=== PATIENT | male | born 1955 | race Caucasian/White ===

== ENCOUNTER 2022-08-29 11:29 | Outpatient (CLI) | payer BC, MEDICARE, SELFPAY ==
[2022-08-29 18:00] LABS: Chloride* 104 mmol/L (96-114); Potassium* 4.6 mmol/L (3.6-5.1); Sodium* 139 mmol/L (135-149)
[2022-08-29 18:03] LABS: Blood Urea Nitrogen* 23 mg/dL (7-30); Carbon Dioxide* 32 mmol/L (20-32); Creatinine* 0.8 mg/dL (0.5-1.5); Estimated Glomerular Filt Rate 98 ml/min; Glucose* 106 mg/dL (60-115)
[2022-08-29 18:04] LABS: Calcium* 9.7 mg/dL (8.4-10.6)
== END 2022-08-29 11:30 | disposition home or self-care (01) ==
LOC: LONREF 11:34
PROVIDERS: PCP Family Medicine; Visit Provider Family Medicine
DX: Z01.818 Encounter for other preprocedural examination (principal)
CPT/HCPCS: 80048

== ENCOUNTER 2023-02-18 11:15 | Outpatient (CLI) | payer BC, MEDICARE, SELFPAY | END 2023-02-18 11:16 | disposition home or self-care (01) | PROVIDERS: PCP Family Medicine; Visit Provider Family Medicine | DX: Z01.818 Encounter for other preprocedural examination (principal); I10 Essential (primary) hypertension; E78.5 Hyperlipidemia, unspecified; Z12.5 Encounter for screening for malignant neoplasm of prostate; E13.9 Other specified diabetes mellitus without complications | CPT/HCPCS: 80048; 80061; 84153 ==

== ENCOUNTER 2024-02-05 11:06 | Outpatient (CLI) | payer BC, MEDICARE, SELFPAY | END 2024-02-05 11:07 | disposition home or self-care (01) | PROVIDERS: PCP Family Medicine; Visit Provider Family Medicine | DX: I10 Essential (primary) hypertension (principal); E78.5 Hyperlipidemia, unspecified; E13.9 Other specified diabetes mellitus without complications; D64.9 Anemia, unspecified | CPT/HCPCS: 80048; 80061 ==

== ENCOUNTER 2024-08-03 02:31 | Emergency (ER) | payer BC, MEDICARE, SELFPAY ==
[2024-08-03 02:36] VITALS: BP 166/83; PULSE 117; RESP 16; TEMP 37; O2SAT 96; BMI 32.7
--- NOTE | 2024-08-03 02:58 | CRLHL7_ITS ---
For Patients: As a result of the Cures Act, medical imaging exams and procedure reports are released immediately into your electronic medical record. You may view this report before your referring provider. If you have questions, please contact your health care provider. Indication: Worsening chronic pain Technique: Frontal view of the pelvis and two views of the right hip Comparison: None Findings/Impression: Right hip replacement and partially visualized lumbosacral fusion hardware with no acute radiographic abnormality appreciated. Dictated by Portillo Fierro MD @ 08/03/2024 3:26:42 AM (Electronically Signed)
--- OUTSIDE RECORDS SUMMARY | 2024-08-03 03:05 | XMS_ITS | Clinical Summary ---
Author Organization [facility] Address [place], [place] [address] Care Team Providers Care Residential Program Coordinator Name Role Phone Timbo Cobos MD Primary Care Provider [phone] Allergies Active Allergy Reactions Criticality Noted Date Comments Hydromorphone *Unknown 05/25/2021 Pollen Extracts *Unknown 02/28/2022 Prednisone Other - Describe In Comment Field Aggressive Tramadol *Unknown - Pt Doesn't Remember 05/24 Medications Medication Sig Dispensed Refills Start Date End Date Status amitriptyline (ELAVIL) 100 mg tablet Take 100 mg by mouth at bedtime. 08/26/2020 Active albuterol HFA (PRO-AIR; VENTOLIN; PROVENTIL) 90 mcg/actuation inhaler Inhale 2 Puffs by mouth every 4 hours if needed for Shortness Of Breath. Active MULTIVITAMIN ORAL Take 1 Tablet by mouth once daily. Active SUMAtriptan (IMITREX) 50 mg tablet Take 50 mg by mouth 2 times daily if needed for Migraine. Give at minimum 2hrs apart. Max Dose: 200mg per 24hrs. Active WalkerIndications:P ost-op pain,S/P lumbar fusion Walker with front wheels for home use. 1 Each 06/08/2021 Active morphine IMMEDIATE RELEASE 15 mg tablet Take 15 mg by mouth 3 times daily if needed for Pain. Active morphine CONTROLLED RELEASE (MS CONTIN) 30 mg CR tablet Take 30 mg by mouth three times daily. Active ascorbic acid, vitamin C, (VITAMIN C) 250 mg tablet Take 250 mg by mouth once daily. Active citalopram (CELEXA) 20 mg tablet Take 20 mg by mouth once daily. Active ferrous sulfate, 65 mg elemental, tablet Take 325 mg by mouth once daily with a meal. Active metoprolol succinate (TOPROL XL) 25 mg Sustained-Release tablet Take 25 mg by mouth once daily. Active metFORMIN (GLUCOPHAGE XR) 750 mg Extended-Release tablet Take 750 mg by mouth two times daily with meals. Active pramipexole (MIRAPEX) 1 mg tablet Take 1 mg by mouth at bedtime. Active pramipexole (MIRAPEX) 1 mg tablet Take 1 mg by mouth at bedtime if needed (restless leg syndrome). May take in addition to the scheduled dose Active acetaminophen (TYLENOL EXTRA STRGTH) 500 mg tabletIndications:S /P total right hip arthroplasty Take 2 Tablets (1,000 mg) by mouth three times daily. Max acetaminophen dose: 4000mg in 24 hrs. 0 09/05/2022 Active Additional Information Patient taking differently:1,000 mg OralQ 6H PRN, Pain, Max acetaminophen dose: 4000mg in 24 hrs., Reported on 03/06/2023 aspirin (ECOTRIN) 81 mg enteric coated tabletIndications:S /P total right hip arthroplasty Take 1 Tablet (81 mg) by mouth two times daily with meals. 60 Tablet 09/05/2022 Active cyclobenzaprine (FLEXERIL) 10 mg tablet Take 10 mg by mouth three times daily. 11/20/2022 Active gabapentin (NEURONTIN) 300 mg capsule Take 600 mg by mouth three times daily. Active Active Problems Problem Noted Date Diagnosed Date Primary osteoarthritis of right hip 09/04/2022 S/P total right hip arthroplasty 07/23/2022 Acute blood loss anemia 06/03/2021 Presence of intrathecal pump 05/29/2021 Overview (05/29/2021): Managed by [facility], fentanyl, morphine and bupivacaine Asthma Depression Diabetes mellitus, type 2 GERD (gastroesophageal reflux disease) Hyperlipidemia Lumbar spinal stenosis Overview (05/29/2021): Status post ERP-STAGE1 ANTERIOR FUSION L3-S1 SUPINE on 05/29/[address] Medina Restless leg syndrome Migraine Type 2 diabetes mellitus wit hout complication, without long-term current use of insulin Immunizations Name Administration Dates Next Due Influenza RIV4 (Age 18+ Years) PRESERV FREE 06/17 Influenza, IIV3 (Age >=3 years) 07/01/2009,08/19 Influenza, IIV4 07/17/2020 Pneumococcal Poly,23-Valent (Pneumovax) 08/19/20 08 Tdap 12/03/2018,08/19/2008 Family History Medical History Relation Name Comments Diabetes Father Alzheimer's disease Mother Relation Name Status Comments Father Mother Social History Tobacco Use Types Packs/Day Years Used Date Smoking Tobacco: Every Day Cigarettes 0.5 47.9 Started: 1975 Smokeless Tobacco: Never Tobacco Cessation:Ready to Q uit: Not Asked; Counseling Given: Not Answered Comments:Has smoked since age 21, half a pack per day Alcohol Use Standard Drinks/Week Comments Never 0 (1 standard drink = 0.6 oz pur e alcohol) Social Connections Answer Date Recorded Frequency of Communication with Friends and Fami ly Not on file 12/25/2022 Sex and Gender Information Value Date Recorded Sex Assigned at Not on file Gender Identity Not on file Sexual Orientation Not on file Obstetrics History Last Filed Vital Signs Vital Sign Reading Time Taken Comments Blood Pressure 124/61 03/07/2023 8:25 AM CDT Pulse 82 03/07/2023 8:25 AM CDT Temperature 36.7 ??C (98.1 ??F) 03/07/2023 8:25 AM CD T Respiratory Rate 18 03/07/2023 8:25 AM CDT Oxygen Saturation 96% 03/07/2023 8:25 AM CDT Inhaled Oxygen Concentration - - Weight 105.7 kg (233 lb 1.6 oz) 03/06/2023 6:28 AM CDT Height 177.8 cm (5' 10) 03/04/2023 8:34 AM CDT Body Mass Index 33.45 03/04/2023 8:34 AM CDT Plan of Treatment Health Maintenance Due Date Last Done Comments Depression screening for age 12+ 1968 BMI (ht and wt on same day) for age 18+ 1974 Hepatitis C screening for ag e 18-79 1974 Colonoscopy through age 75 2001 Lipids for age 45-75 2001 Zoster (shingles) series for age 50+ (1 of 2) 2006 Pneumococcal series for age 65+ (2 of 2 - PCV) 2021 08/19/2008 COVID-19 vaccine series ( - season) 2024 Influenza for age 65+ 05/17/2024 07/17/2020 , 07/12/2020, 07/01/2009, Additional history exists Tetanus booster 12/03/2028 12/03/2018, 08/19/2008 Tdap Completed 12/03/2018, 08/19/2008 Medical Devices Implanted Type Area Drapery And Upholstery Measurer Device Identifier Shelf Expiration Date Model / Serial / Lot Bone Matrix Md Infuse Bmp - [id number] Implanted:Qty: 1 on 05/29/2021 by Fransisco Medina MD at [facility] N/A: Lumbar Vertebrae Med[employer] Spine/Ortho 05/17/2023 [id number] / / [id number] Description:Implanted L3-S1 anterior Bone Matrix 10cc [place] [employer] Dbm - [id number] Implanted:Qty: 1 on 05/29/2021 by Fransisco Medina MD at [facility] N/A: Lumbar Vertebrae Med[employer] Spine/Ortho 04/11/2023 [id number] / [id number] / Description:Implanted L3-S1 anterior Bone Matrix 10cc [employer] Db - [id number] Implanted:Qty: 1 on 05/29/2021 by Fransisco Medina MD at [facility] N/A: Lumbar Vertebrae [employer]onic Spine/Ortho 04/17/2023 [id number] / [id number] / Description:Implanted L3-S1 anterior Bone 1-4mm 30cc Medtronic Chips Canclls Freeze Dried - [id number] Implanted:Qty: 1 on 05/29/2021 by Fransisco Medina MD at [facility] N/A: Lumbar Vertebrae [employer]onic Spine/Ortho 09/11/2025 [id number] / [id number] / - Description:Implanted L3-S1 anterior M3 Stand-Alone Alif Cage 25mmx 35mm- 8 Degrees, 13mm Implanted:Qty: 1 on 05/29/2021 by Fransisco Medina MD at [facility] N/A: Lumbar Vertebrae Youxiduo 09/30/2025 [id number] / / [id number] Description:Anterior L3-L4 S pine M3 Stand-Alone Alif Cage, 25mmx 35mm, 8 Degrees, 14 Mm Implanted:Qty: 1 on 05/29/2021 by Fransisco Medina MD at [facility] N/A: Lumbar Vertebrae [facility] 04/06/2026 [id number] / / [id number] Description:Anterior L5-S1 M3 Stand-Alone Alif Cage, 25mmx 35mm, 8 Degrees, 15 Mm Implanted:Qty: 1 on 05/29/2021 by Fransisco Medina MD at [facility] N/A: Lumbar Vertebrae 04/18/2025 [id number] / / [id number] Description:Anterior L4-L5 Corelink 5.5mm X 20mm Screw Implanted:Qty: 9 on 05/29/2021 by Fransisco Medina MD at [facility] N/A: Lumbar Vertebrae Youxiduo [id number] / / [id number] Description:Anterior L3-S1 Corelink Locking Plate Implanted:Qty: 3 on 05/29/2021 by Fransisco Medina MD at [facility] N/A: Lumbar Vertebrae Youxiduo [id number] / / [id number] Description:Anterior L3-S1 Bone Matrix 10cc Stimulan Kitrapid Cure - [id number] Implanted:Qty: 1 on 05/31/2021 by Fransisco Medina MD at [facility] N/A: Thoracic Vertebrae [employer] 11/14/2023 [id number] / / [id number] Bone Matrix Lg Infuse Bmp - [id number] Implanted:Qty: 1 on 05/31/2021 by Fransisco Medina MD at [facility] Lumbar Vertebrae Med[employer] Spine/Ortho 03/15/2023 [id number] / / [id number] Description:Posterior T10-pe lvis Bone Matrix 17.2r942mj [facility] [id number] Implanted:Qty: 1 on 05/31/2021 by Fransisco Medina MD at [facility] Lumbar Vertebrae [employer]onic Spine/Ortho 02/15/2023 [id number] / [id number] / - Description:Posterior T10-pe lvis Bone 1-4mm 90cc Medtronic Chips Canclls Freeze Dried - [id number] Implanted:Qty: 1 on 05/31/2021 by Fransisco Medina MD at [facility] Lumbar Vertebrae [employer] Spine/Ortho 10/05/2025 [id number] / [id number] / - Bone 1-4mm 30cc Medtronic Chips Canclls Freeze Dried - [id number] Implanted:Qty: 1 on 05/31/2021 by Fransisco Medina MD at [facility] Lumbar Vertebrae [employer] Spine/Ortho 09/11/2025 [id number] / [id number] / Description:Posterior T10-pe lvis Screw Lmbr Post 7.5x45mm Xia3va - [id number] Implanted:Qty: 6 on 05/31/2021 by Fransisco Medina MD at [facility] Lumbar Vertebrae [facility] [id number] / / Description:Posterior T10-pe lvis Screw Lmbr Post 7.5x50mm Loyda 3va - [id number] Implanted:Qty: 2 on 05/31/2021 by Fransisco Medina MD at [facility] Lumbar Vertebrae [place] [employer] [id number] / / Description:Posterior T10-pe lvis Screw Lmbr Post 6.5x50mm Xia3va - [id number] Implanted:Qty: 5 on 05/31/2021 by Fransisco Medina MD at [facility] Lumbar Vertebrae [place] [employer] [id number] / / Description:Posterior T10-pe lvis Screw Lmbr Post 5x45mm Xia3 Va - [id number] Implanted:Qty: 2 on 05/31/2021 by Fransisco Medina MD at [facility] Lumbar Vertebrae [employer] [facility] [id number] / / Description:Posterior T10-pe lvis Screw Lmbr Post 6.5x45mm Loyda 3va - [id number] Implanted:Qty: 1 on 05/31/2021 by Fransisco Medina MD at [facility] Lumbar Vertebrae [employer] Spine [id number] / / Description:Posterior T10-pe lvis Screw Lmbr Post 7.5x40mm Loyda 3va - [id number] Implanted:Qty: 2 on 05/31/2021 by Fransisco Medina MD at [facility] Lumbar Vertebrae [place] Spine [id number] / / Description:Posterior T10-pe lvis Screw Lmbr Post 8.5x70mm Ilios Va - [id number] Implanted:Qty: 1 on 05/31/2021 by Fransisco Medina MD at [facility] Lumbar Vertebrae [employer]o Spine [id number] / / Description:Posterior T10-pe lvis Set Screw Lmbr Xia3 - [id number] Implanted:Qty: 19 on 05/31/2021 by Fransisco Medina MD at [facility] Lumbar Vertebrae [employer] Spine [id number] / / Description:Posterior T10-pe lvis Pradip Lmbr [id number] Loyda Iii Hexagonal Co Cr - [id number] Implanted:Qty: 2 on 05/31/2021 by Fransisco Medina MD at [facility] Lumbar Vertebrae [employer] Spine [id number] / / Description:Posterior T10-pe lvis Vitoss Mimodal Implanted:Qty: 1 on 05/31/2021 by Fransisco Medina MD at [facility] Lumbar Vertebrae [employer] [facility] 12/11/2021 / / [id number] Description:Posterior T10-pe lvis Vitoss Bimodal Implanted:Qty: 1 on 05/31/2021 by Fransisco Medina MD at [facility] Lumbar Vertebrae [place] Sp[facility] 01/11/2022 / / [id number] Description:Posterior T10-pe lvis Vitoss Bimodal Implanted:Qty: 1 on 05/31/2021 by Fransisco Medina MD at [facility] Lumbar Vertebrae [employer] Sp[facility] 05/13/2022 / / [id number] Description:Posterior T10-pe lvis Cnnctr Lmbr 53-73mm Loyda Iii Va - [id number] Implanted:Qty: 1 on 05/31/2021 by Fransisco Medina MD at [facility] Lumbar Vertebrae [employer] Spine [id number] / / Description:Posterior T10-pe lvis Clusterhole Acetabular Shell Implanted:Qty: 1 on 09/04/2022 by Min Kelley MD at [facility] Right: Hip [facility] 07/17/2027 [id number] / / [id number] 6.5mm Low Profile Hex Screw Implanted:Qty: 1 on 09/04/2022 by Min Kelley MD at [facility] Right: Hip [facility] 08/07/2027 [id number] / / [id number] 6.5mm Low Profile Hex Screw Implanted:Qty: 1 on 09/04/2022 by Min Kelley MD at [facility] Right: Hip [place] [facility] 07/26/2027 [id number] / / [id number] Insert For Mdm Implanted:Qty: 1 on 09/04/2022 by Min Kelley MD at [facility] Right: Hip [facility] 11/21/2025 [id number] / / [id number] Mdm Liner Implanted:Qty: 1 on 09/04/2022 by Min Kelley MD at [facility] Right: Hip [facility] 02/23/2026 [id number] / / [id number] 127deg Neck Angle Hip Stem Implanted:Qty: 1 on 09/04/2022 by Min Kelley MD at [facility] Right: Hip [facility] 10/16/2026 [id number] / / [id number] Ceramic V40 Femoral Head Implanted:Qty: 1 on 09/04/2022 by Min Kelley MD at [facility] Right: Hip [facility] 04/29/2026 [id number] / / [id number] Explanted Type Area Drapery And Upholstery Measurer Device Identifier Shelf Expiration Date Model / Serial / Lot Screw Sm Joint 4.5x20mm Axsos Dale Titnm - [id number] Explanted:Qty : 3 on 05/31/2021 by Fransisco Medina MD at [facility] Lumbar Vertebrae [place] [facility] [id number] / / Pain Pump Explanted:Qty : 1 on 03/06/2023 by Fransisco Medina MD at [facility] Right: Spine [place] Loyda 3 Screws, 3 Caps, 1 Pradip Explanted:Qty : 1 on 03/06/2023 by Fransisco Medina MD at [facility] N/A: Spine Description:L5-Pelvis Advance Directives * DNR (Latest Code Status on File) Date Activated Date Inactivated Comments 03/06/2023 7:27 AM 03/07/2023 2:00 PM Question Answer Comments Code Status Discussion: Reviewed PreferencesOthe r Per Dr. Medina and Dr. French * Full Code Date Activated Date Inactivated Comments 03/06/2023 6:03 AM 03/06/2023 7:27 AM Question Answer Comments Code Status Discussion: Unable to Assess Preferences, Provider to review later * Full Code Date Activated Date Inactivated Comments 09/04/2022 1:09 PM 09/08/2022 5:53 PM Question Answer Comments Code Status Discussion: Unable to Assess Preferences, Provider to review later * Full Code Date Activated Date Inactivated Comments 09/04/2022 7:53 AM 09/04/2022 1:09 PM Question Answer Comments Code Status Discussion: Not Discussed * Full Code Date Activated Date Inactivated Comments 05/31/2021 10:27 AM 06/08/2021 7:19 PM Question Answer Comments Code Status Discussion: Not Discussed Care Teams Residential Program Coordinator Relationship Specialty Start Date End Date Timbo Cobos MD PCP - General Family Practice 10/18/20
--- NOTE | 2024-08-03 03:45 | ED_ITS ---
HPI - General Adult General Date Seen: 08/03/24 Chief complaint: Hip Injury/Pain Stated complaint: right hip pain Time Seen by Provider: 08/03/24 02:35 Source: patient, RN notes reviewed and old records reviewed Mode of arrival: ambulatory Limitations: no limitations History of Present Illness HPI narrative: Patient is a 68-year-old male with a history of chronic pain including chronic neck pain, chronic low back pain and chronic right hip pain status post multiple surgeries. He does have a pain contract currently with a pain clinic which is relatively new to him, previously was followed by [facility] pain clinic. He notes an increase in his chronic right hip pain over the past few days. He uses the cane all the time but has had to use a walker more frequently and is worried about having to use this once it gets snowy. He denies injuries or illness, no fevers. Pain is worsened by weight-bearing and movement, better at rest. He continues to take his extended release and immediate release morphine, he isn't certain if he is currently taking cyclobenzaprine, also has gabapentin. Says that steroids have never been helpful. Is worried that hardware may be broken. Related Data Home Medications ?Medication ?Instructions ?Recorded ?Confirmed multivitamin 1 tab PO QDAY 04/30/22 02/05/24 sumatriptan succinate 50 mg tablet 50 mg PO .As Needed PRN 04/30/22 02/05/24 gabapentin 300 mg capsule 900 mg PO QDAY 08/29/22 02/05/24 acetaminophen 650 mg 500 mg PO Q8H 02/05/24 02/05/24 tablet,extended release aspirin 81 mg tablet,delayed 81 mg PO .every other day 02/05/24 02/05/24 release (Adult Low Dose Aspirin) cyclobenzaprine 10 mg tablet 10 mg PO TID 02/05/24 02/05/24 ferrous sulfate 325 mg (65 mg 325 mg PO .PRN 02/05/24 02/05/24 iron) tablet (FeroSul) morphine PO BID PRN 02/05/24 morphine 30 mg immediate release 15 mg PO Q6H PRN 02/05/24 02/05/24 tablet Previous Rx's ?Medication ?Instructions ?Recorded amoxicillin 500 mg capsule 2,000 mg (4 x 500 mg) PO ONCE #8 08/29/22 caps albuterol sulfate 90 mcg/actuation 2 puff inhalation Q6-8H PRN 02/05/24 aerosol inhaler shortness of breath or wheezing #6.7 grams amitriptyline 100 mg tablet See Rx Instructions .Route 02/05/24 .COMPLEX #90 tabs citalopram 20 mg tablet 20 mg PO DAILY #90 tabs 02/05/24 metformin 750 mg tablet,extended 1,500 mg (2 x 750 mg) PO QDAY #180 02/05/24 release 24 hr tabs metoprolol succinate 25 mg 25 mg PO DAILY #90 tabs 02/05/24 tablet,extended release 24 hr pramipexole 1 mg tablet 1 mg PO QPM #90 tabs 02/05/24 rosuvastatin 20 mg tablet 20 mg PO .Bedtime #90 tabs 02/05/24 glimepiride 4 mg tablet 4 mg PO QAM #90 tabs 02/06/24 ascorbic acid (vitamin C) 250 mg See Rx Instructions .Route 02/07/24 tablet .COMPLEX #90 tabs ferrous sulfate 325 mg (65 mg See Rx Instructions .Route 02/07/24 iron) tablet (FeroSul) .COMPLEX #90 tabs lidocaine 5 % topical patch 1 patch topical Q24H #15 ea 08/03/24 Allergies Allergy/AdvReac Type Severity Reaction Status Date / Time hydromorphone Allergy Unknown Verified 02/05/24 10:21 prednisone Allergy Unknown violent Verified 02/05/24 10:21 tramadol Allergy Unknown Verified 02/05/24 10:21 [facility] Medical History H/O onychomycosis ?Z86.19 - Personal history of other infectious and parasitic diseases (ICD- 10) Surgical History History of total right hip arthroplasty ?Z96.641 - Presence of right artificial hip joint (ICD-10) Status post thoracic spinal fusion (~05/2021) ?Z98.1 - Arthrodesis status (ICD-10) Status post laminectomy with spinal fusion (~05/2021) ?Z98.1 - Arthrodesis status (ICD-10) Status post cervical spinal arthrodesis (~2011) ?Z98.1 - Arthrodesis status (ICD-10) Status post bilateral inguinal hernia repair ?Z98.890 - Other specified postprocedural states (ICD-10) ?Z87.19 - Personal history of other diseases of the digestive system (ICD-10) History of umbilical hernia repair ?Z98.890 - Other specified postprocedural states (ICD-10) ?Z87.19 - Personal history of other diseases of the digestive system (ICD-10) History of right knee surgery ?Z98.890 - Other specified postprocedural states (ICD-10) Family History Father Diabetes Mother Alzheimers disease Social History Smoking Status: Current some day smoker Do you use any of these nicotine containing products: None Second hand tobacco smoke exposure: No Non-prescribed substance use: denies use Exam Narrative: Exam Narrative: Vital signs reviewed. Mildly tachycardic on arrival, resolved spontaneously. In general, alert, nontoxic. Abdomen: Soft, nontender, protuberant. Back: Diffusely tender to palpation. Extremities: He has chronic venous stasis changes in the right lower extremity which he says have been present since his surgery. Pulses intact. No significant edema, no calf tenderness. Gentle range of motion of the right hip did not seem to cause any significant pain. He has diffuse tenderness over the posterior and lateral hip on the right. There is no rash, erythema or swelling. Const: Vital Signs, click to edit/add: Vital Signs - 24 hr 08/03/24 02:36 Temperature 98.6 F Pulse Rate [Left P ulse Oximeter] 117 H Respiratory Rate 16 Blood Pressure [Ri ght Upper Arm] 166/83 H Pulse Oximetry 96 Oxygen Delivery Me thod Room Air Documenting provider has reviewed patient's vital signs: yes Course Course ED Course: X-rays of the right hip by my review show intact hardware, no dislocation or fracture. I reviewed this with him. I do not find anything on exam or history to suggest a new problems such as septic joint, pain is more in the posterior hip/SI area less over the trochanteric bursa. He has an ongoing pain contract, discussed with him I am not really able to provide additional narcotic pain medication which he says he does not want any way. He says he was hoping maybe there was something broken hardware that could be fixed. He is willing to try lidocaine patch to see if that provides any additional benefit for him as he says he has not tried these for a while. He has an appointment with his pain clinic in 10 days and I have encouraged him to keep that, would also touch base with them by phone if possible tomorrow. Return any time for significant worsening. Vital Signs Vital signs: Initial Vital Signs Temperature 98.6 F 08/03/24 02:36 Temperature Source Temporal Artery Scan 08/03/24 02:36 Pulse Rate 117 H 08/03/24 02:36 Respiratory Rate 16 08/03/24 02:36 Blood Pressure 166/83 H 08/03/24 02:36 Blood Pressure Mean 110 H 08/03/24 02:36 Blood Pressure Position Sitting 08/03/24 02:36 Pulse Oximetry 96 08/03/24 02:36 Oxygen Delivery Method Room Air 08/03/24 02:36 Vital Signs Temperature 98.6 F 08/03/24 02:36 Pulse Rate 117 H 08/03/24 02:36 Respiratory Rate 16 08/03/24 02:36 Blood Pressure 166/83 H 08/03/24 02:36 Pulse Oximetry 96 08/03/24 02:36 Oxygen Delivery Method Room Air 08/03/24 02:36 Temperature 98.6 F 08/03/24 02:36 Pulse Rate 117 H 08/03/24 02:36 Respiratory Rate 16 08/03/24 02:36 Blood Pressure 166/83 H 08/03/24 02:36 Pulse Oximetry 96 08/03/24 02:36 Oxygen Delivery Method Room Air 08/03/24 02:36 Medical Decision Making Imaging Data Right hip x-ray: Attestation: I have reviewed the pertinent imaging results. Radiologist's impression: Patient: SHAHAB ROBLERO Facility: [facility] Site . Site : [id number] Study: XRay-Hip Right W/PELVIS-08/03/2024 3:24:14 AM Ordering Physician: Abraham Mora Final Report: Indication: Worsening chronic pain Technique: Frontal view of the pelvis and two views of the right hip Comparison: None Findings/Impression: Right hip replacement and partially visualized lumbosacral fusion hardware with no acute radiographic abnormality appreciated. Dictated by Portillo Fierro MD @ 08/03/2024 3:26:42 AM Discharge Plan Discharge Clinical Impression: Chronic right hip pain Patient Disposition: Home, Self-Care Condition: Stable Instructions: Pain Management (ED) Additional Instructions: Trial of lidocaine patches in addition to your usual medications. Please call your pain clinic tomorrow to touch base, follow-up as planned in a week and a half. Return to the ER for worsening or new symptoms. Prescriptions: New lidocaine 5 % adhesive patch,medicated 1 patch topical Q24H Qty: 15 0RF Rx Instructions: leave on most painful area for up to 12 hrs No Action gabapentin 300 mg capsule 900 mg PO QDAY amoxicillin 500 mg capsule 2,000 mg PO ONCE Qty: 8 2RF multivitamin Tablet 1 tab PO QDAY sumatriptan succinate 50 mg tablet 50 mg PO .As Needed PRN Rx Instructions: ONE TAB AT ONSET OF HEADACHE, MAY REPEAT Q2H PRN, MAX 200 MG/24 HRS acetaminophen 650 mg tablet extended release 500 mg PO Q8H morphine 30 mg tablet 15 mg PO Q6H PRN aspirin [Adult Low Dose Aspirin] 81 mg tablet,delayed release (DR/EC) 81 mg PO .every other day morphine 15 mg PO BID PRN cyclobenzaprine 10 mg tablet 10 mg PO TID ferrous sulfate [FeroSul] 325 mg (65 mg iron) tablet 325 mg PO .PRN albuterol sulfate 90 mcg/actuation HFA aerosol inhaler 2 puff inhalation Q6-8H PRN (Reason: shortness of breath or wheezing) Qty: 6.7 4RF amitriptyline 100 mg tablet See Rx Instructions .ROUTE .COMPLEX Qty: 90 3RF Dose Instruction: TAKE 1 TABLET AT BEDTIME Rx Instructions: TAKE 1 TABLET AT BEDTIME citalopram 20 mg tablet 20 mg PO DAILY Qty: 90 3RF metformin 750 mg tablet extended release 24 hr 1,500 mg PO QDAY Qty: 180 3RF metoprolol succinate 25 mg tablet extended release 24 hr 25 mg PO DAILY Qty: 90 3RF pramipexole 1 mg tablet 1 mg PO QPM Qty: 90 3RF rosuvastatin 20 mg tablet 20 mg PO .Bedtime Qty: 90 3RF glimepiride 4 mg tablet 4 mg PO QAM Qty: 90 3RF Rx Instructions: administer with breakfast ferrous sulfate [FeroSul] 325 mg (65 mg iron) tablet See Rx Instructions .ROUTE .COMPLEX Qty: 90 3RF Dose Instruction: TAKE 1 TABLET DAILY TAKE WITH VITAMIN C 250 MG ONCE DAILY Rx Instructions: TAKE 1 TABLET DAILY TAKE WITH VITAMIN C 250 MG ONCE DAILY ascorbic acid (vitamin C) 250 mg tablet See Rx Instructions .ROUTE .COMPLEX Qty: 90 3RF Dose Instruction: TAKE 1 TABLET DAILY WITH FERROUS SULFATE 325 MG ONCE DAILY Rx Instructions: TAKE 1 TABLET DAILY WITH FERROUS SULFATE 325 MG ONCE DAILY Follow Up/Referrals: Timbo Cobos MD [Primary Care Provider] - Stand Alone Forms: [employer] Info Instructions
== END 2024-08-03 04:00 | disposition home or self-care (01) ==
PROVIDERS: Emergency Provider Emergency Medicine; PCP Family Medicine
DX: M25.551 Pain in right hip (principal)
CPT/HCPCS: 73502; 99283; 99284

== ENCOUNTER 2024-09-24 02:25 | Outpatient (CLI) | payer BC, MEDICARE, SELFPAY | END 2024-09-24 02:26 | disposition home or self-care (01) | LOC: AMB 10-08 06:22 | PROVIDERS: PCP Family Medicine; Visit Provider Family Medicine | DX: M54.9 Dorsalgia, unspecified (principal) | CPT/HCPCS: A0425; A0427 ==

== ENCOUNTER 2024-09-24 03:12 | Emergency (ER) | payer BC, MEDICARE, SELFPAY ==
[2024-09-24] VITALS (23 sets, daily range): BP systolic 96–137; BP diastolic 56–100; PULSE 92–112; RESP 18–230; TEMP 36.7; O2SAT 81–96; BMI 27.1
--- NOTE | 2024-09-24 03:28 | CRLHL7_ITS ---
For Patients: As a result of the Century Cures Act, medical imaging exams and procedure reports are released immediately into your electronic medical record. You may view this report before your referring provider. If you have questions, please contact your health care provider. INDICATION: Fall TECHNIQUE: CT thoracic spine without contrast. COMPARISON: None. FINDINGS: Vertebrae: Mild levocurvature of the thoracic spine. Partially visualized cervical spine hardware described separately. Partially visualized thoracolumbar posterior fusion beginning at T10. There are no fractures or suspicious bony lesions. Discs and facet joints: Moderate degenerative disease of the thoracic spine, most severe at T8-T9 with severe disc height loss and endplate changes. Mild central narrowing at throughout the thoracic spine. [id number] neural foraminal narrowing throughout the thoracic spine. Severe neural foramina narrowing at T4-T5 on the left, T7-T8 on the right at and T8-T9 on the right. Extraspinal findings: Prevertebral soft tissues, visualized airway, and visualized lungs are unremarkable. Evaluation of the lungs is limited by respiratory motion artifact. IMPRESSION: No acute fracture or traumatic subluxation. Visualized spinal hardware is intact. Moderate degenerative disease of the thoracic spine. Please note that all CT scans at this facility use dose modulation, iterative reconstruction, and/or weight-based dosing when appropriate to reduce radiation dose to as low as reasonably achievable. Dictated by Sonya Shah MD @ 09/24/2024 4:54:11 AM (Electronically Signed)
--- NOTE | 2024-09-24 03:28 | CRLHL7_ITS ---
For Patients: As a result of the Cures Act, medical imaging exams and procedure reports are released immediately into your electronic medical record. You may view this report before your referring provider. If you have questions, please contact your health care provider. INDICATION: Fall TECHNIQUE: CT cervical spine without contrast. COMPARISON: None. FINDINGS: Vertebrae: No acute fracture traumatic subluxation. C3 to C7 ACDF and PSIF with interbody disc spacers. Hardware is intact without evidence of loosening. Osseous fusion across the spinous processes and facets at C3-C7. Discs and facet joints: Degenerative disease throughout the spine with facet arthropathy. Moderate to severe bilateral neural foraminal narrowing at C4-C5. Mild to moderate bilateral neural foraminal narrowing throughout the remainder of the cervical spine. Extraspinal findings: Biapical pleural-parenchymal scarring. Prevertebral soft tissues are unremarkable. IMPRESSION: 1. No sign of acute injury. 2. C3-C7 ACDF and PSIF. 3. Moderate degenerative disease of the cervical spine, most severe at C4-C5. Please note that all CT scans at this facility use dose modulation, iterative reconstruction, and/or weight-based dosing when appropriate to reduce radiation dose to as low as reasonably achievable. Dictated by Sonya Shah MD @ 09/24/2024 4:43:35 AM (Electronically Signed)
--- NOTE | 2024-09-24 03:28 | CRLHL7_ITS ---
For Patients: As a result of the Century Cures Act, medical imaging exams and procedure reports are released immediately into your electronic medical record. You may view this report before your referring provider. If you have questions, please contact your health care provider. INDICATION: Fall TECHNIQUE: CT lumbar spine without contrast. COMPARISON: MR lumbar spine 10/04/2020 FINDINGS: Vertebrae: S shaped curvature of the visualized thoracolumbar spine. Transitional vertebral anatomy with lumbarization of S1. L3-L5 laminectomies. Partially visualized posterior fusion with sabrina terminating at L4 on the right and S1 on the left. Fusion of posterior rods at the level of L4. There is fracture of the left sabrina at the level L5. L3-S1 anterior fusion with interbody disc spacers. No evidence of hardware loosening. Osseous fusion of the lumbar spine from L2 to S1, though there is incomplete fusion at L4-L5. Screw tracts in the iliac wings. Discs and facet joints: Moderate degenerative disease of the lumbar spine. Extraspinal findings: Fluid and subcutaneous gas in the lumbar spine extending from L3-S1, particularly along the left spinal sabrina. Four ingest the bilateral psoas muscles, greater than left. IMPRESSION: No acute fracture. Spinal hardware with fracture of the left sabrina at the level of L5. Fluid and gas throughout the L3-L5 laminectomy beds and extending along the left spinal sabrina, and in the bilateral psoas muscles, greater on the left. Correlate with recent surgery. If no recent surgery has been performed, this is concerning for infection. Please note that all CT scans at this facility use dose modulation, iterative reconstruction, and/or weight-based dosing when appropriate to reduce radiation dose to as low as reasonably achievable. Dictated by Sonya Shah MD @ 09/24/2024 5:08:57 AM (Electronically Signed)
--- NOTE | 2024-09-24 03:28 | CRLHL7_ITS ---
For Patients: As a result of the Century Cures Act, medical imaging exams and procedure reports are released immediately into your electronic medical record. You may view this report before your referring provider. If you have questions, please contact your health care provider. INDICATION: Fall TECHNIQUE: CT head without contrast. COMPARISON: CT head 06/11/2021 FINDINGS: Evaluation limited by motion artifact. symmetric. The ventricles, sulci and cisterns are normal. BRAIN: The brain parenchyma is normal. No acute transcortical infarct or hemorrhage is seen. VASCULATURE: No acute abnormality on this noncontrast exam. EXTRA-AXIAL: Extra-axial spaces are normal. EXTRA-CRANIAL: Skull and facial bones are normal. Mild scattered sinus mucosal thickening. Mastoids are clear. Orbits are normal. IMPRESSION: No acute intracranial abnormality. Please note that all CT scans at this facility use dose modulation, iterative reconstruction, and/or weight-based dosing when appropriate to reduce radiation dose to as low as reasonably achievable. Dictated by Sonya Shah MD @ 09/24/2024 4:36:15 AM (Electronically Signed)
[2024-09-24 03:36] LABS: Basophils Percent Auto 0.1 % (0.0-3.0); Eosinophils Percent Auto 0.4 % (0.0-7.0); Hematocrit 30.1 % (37.0-53.0); Hemoglobin* 9.5 gm/dL (13.5-17.5); Immature Granulocytes Pct Auto 1.5 %; Lymphocytes Percent Auto 6.7 % (20-44); Mean Corpuscular HGB Conc 32 gm/dL (32-36); Mean Corpuscular Hemoglobin 28 pg (26-34); Mean Corpuscular Volume 88 fL (80-100); Monocytes Percent Auto 5.9 % (0.0-11.0); Neutrophils Percent Auto 85.4 % (42.0-72.0); Platelet Count* 421 K/uL (140-440); RDW Coefficient of Variation % 14.9 % (11.5-15.5); Red Blood Count 3.41 m/uL (4.30-5.90)
[2024-09-24 03:37] LABS: Chloride* 89 mmol/L (96-114); Potassium* 3.3 mmol/L (3.6-5.1); Sodium* 131 mmol/L (135-149)
[2024-09-24 03:38] LABS: Slide Review Reflex No
[2024-09-24 03:40] LABS: Anion Gap 5 mEq/L (7-15); Blood Urea Nitrogen* 28 mg/dL (7-30); Carbon Dioxide* 37 mmol/L (20-32); Creatinine* 1.3 mg/dL (0.5-1.5); Est. Creatinine Clearance* 60.52; Estimated Glomerular Filt Rate 60 ml/min
[2024-09-24 03:41] LABS: Calcium* 9.3 mg/dL (8.4-10.6); Glucose* 260 mg/dL (60-115)
[2024-09-24] MEDS: 0.9 % SODIUM CHLORIDE 1000 ml 1,000 ML 500 ML IV (03:57)
[2024-09-24 04:15] LABS: PCR FLU A Negative PCR FLU A (Negative); PCR FLU B Negative PCR FLU B (Negative); PCR RSV Negative PCR RSV (Negative); SARS PCR* Negative SARS-CoV-2 (Negative)
--- NOTE | 2024-09-24 04:26 | CRLHL7_ITS ---
For Patients: As a result of the Century Cures Act, medical imaging exams and procedure reports are released immediately into your electronic medical record. You may view this report before your referring provider. If you have questions, please contact your health care provider. INDICATION: Hypoxia. COMPARISON: None available. TECHNIQUE: One view (2 images) FINDINGS: Medical Devices: None. Lung Volumes: Adequate inspiration. No significant atelectasis. Lungs: Clear lungs. Pleura and Pleural spaces: No significant pleural effusion. No pneumothorax. Mediastinum: AP technique exaggerates the transverse dimension of the cardiac silhouette. Borderline cardiomegaly. Bony Thorax and Soft Tissues: No significant incidental findings. Cervical and thoracolumbar spinal fusion hardware is incidentally noted, incompletely included in the field of view. IMPRESSION: No findings to explain the clinical history. Incidental findings described in the body of the report. Dictated by Victor Manuel Coles MD @ 09/24/2024 6:05:35 AM (Electronically Signed)
--- OUTSIDE RECORDS SUMMARY | 2024-09-24 04:56 | XMS_ITS | Clinical Summary ---
Author Organization [facility] Address [place], [place] [address] Care Team Providers Care Transcripter Name Role Phone None Primary Care Provider Unavailabl e Allergies Active Allergy Reactions Criticality Noted Date Comments Hydromorphone *Unknown 05/25/2021 Pollen Extracts *Unknown 02/28/2022 Prednisone Other - Describe In Comment Field Aggressive Tramadol *Unknown - Pt Doesn't Remember 05/24 Medications amitriptyline (ELAVIL) 100 mg tablet Take 100 mg by mouth at bedtime. 08/26/20 20 Active albuterol HFA (PRO-AIR; VENTOLIN; PROVENTIL) 90 mcg/actuation inhaler Inhale 2 Puffs by mouth every 4 hours if needed for Shortness Of Breath. Active MULTIVITAMIN ORAL Take 1 Tablet by mouth once daily. Active SUMAtriptan (IMITREX) 50 mg tablet Take 50 mg by mouth 2 times daily if needed for Migraine. Give at minimum 2hrs apart. Max Dose: 200mg per 24hrs. Active WalkerIndication s:Post-op pain,S/P lumbar fusion Walker with front wheels for home use. 1 Each 06/08/20 21 Active morphine IMMEDIATE RELEASE 15 mg tablet [...] Active metoprolol succinate (TOPROL XL) 25 mg Sustained-Releas e tablet Take 25 mg by mouth once [...] Active acetaminophen (TYLENOL EXTRA STRGTH) 500 mg tabletIndication s:S/P total right hip arthroplasty Take 2 Tablets (1,000 mg) by mouth three times daily. Max acetaminophen dose: 4000mg in 24 hrs. 0 09/05/20 22 Active Additional Information Patient taking differently:1,000 mg OralQ 6H PRN, Pain, Max acetaminophen dose: 4000mg in 24 hrs., Reported on 03/06/2023 aspirin (ECOTRIN) 81 mg enteric coated tabletIndication s:S/P total right hip arthroplasty Take 1 Tablet (81 mg) by mouth two times daily with meals. 60 Tablet 09/05/20 22 Active cyclobenzaprine (FLEXERIL) 10 mg tablet Take 10 mg by mouth three times daily. 11/21/19 23 Active gabapentin (NEURONTIN) 300 mg capsule Take 600 mg by mouth three times daily. Active glimepiride (AMARYL) 4 mg tablet 07/12/20 24 Active pregabalin (LYRICA) 225 mg capsule TAKE 1 CAPSULE BY MOUTH TWICE DAILY FOR NERVE PAIN. DISCONTINUE GABAPENTIN 05/20/20 24 Active pregabalin (LYRICA) 300 mg capsule TAKE 1 CAPSULE BY MOUTH TWICE DAILY FOR NERVE PAIN. DISCONTINUE GABAPENTIN 06/17/20 24 Active rosuvastatin (CRESTOR) 20 mg tablet 08/09/20 24 Active Active Problems Problem Noted Date Diagnosed Date Primary osteoarthritis of right hip 09/04/2022 S/P total right hip arthroplasty 07/23/2022 Acute blood loss anemia 06/03/2021 Presence of intrathecal pump 05/29/2021 Overview (05/29/2021): Managed by [facility], fentanyl, morphine and bupivacaine Asthma Depression Diabetes mellitus, type 2 GERD (gastroesophageal reflux disease) Hyperlipidemia Lumbar spinal stenosis Overview (05/29/2021): Status post ERP-STAGE1 ANTERIOR FUSION L3-S1 SUPINE on 05/29/[address] Medina Restless leg syndrome Migraine Type 2 diabetes mellitus wit hout complication, without long-term current use of insulin Encounters Date Type Department Care Team Description 09/10/2024 11:45 AM TAG AND LABEL CUTTER Office Visit [facility] [address] [place] [phone] Francisco Pabon PA Recheck (Lumbar) 09/10/2024 11:30 AM TAG AND LABEL CUTTER Ancillary Procedure [facility] [address] [place] [phone] 09/10/2024 Travel from Last 3 Months Immunizations Name Administration Dates Next Due Influenza RIV4 (Age 18+ Years) PRESERV FREE 06/17 Influenza, IIV3 (Age >=3 years) 07/01/2009,08/19 Influenza, IIV4 07/17/2020 Pneumococcal Poly,23-Valent (Pneumovax) 08/19/20 08 Tdap 12/03/2018,08/19/2008 Family History Medical History Relation Name Comments Diabetes Father Alzheimer's disease Mother Relation Name Status Comments Father Mother Social History Tobacco Use Types Packs/Day Years Used Date Smoking Tobacco: Every Day Cigarettes 0.5 48 Started: 1976 Smokeless Tobacco: Never Tobacco Cessation:Ready [...] Recorded Sex Assigned at Not on file Legal Sex Male 12:23 PM TAG AND LABEL CUTTER Gender Identity Not on file Sexual Orientation Not on file Obstetrics History Last Filed Vital Signs Vital Sign Reading Time Taken Comments Blood Pressure 124/61 03/07/2023 8:25 AM CDT Pulse 82 03/07/2023 8:25 AM CDT Temperature 36.7 C (98.1 F) 03/07/2023 8:25 AM CDT Respiratory Rate 18 03/07/2023 8:25 AM CDT Oxygen Saturation 96% 03/07/2023 8:25 AM CDT Inhaled Oxygen Concentration - - Weight 95.3 kg (210 lb) 09/10/2024 11:38 AM TAG AND LABEL CUTTER Height 182.9 cm (6') 09/10/2024 11:38 AM TAG AND LABEL CUTTER Body Mass Index 28.48 09/10/2024 11:38 AM TAG AND LABEL CUTTER Plan of Treatment Upcoming Encounters Date Type Department Care Team (Late st Contact Info) Description 10/12/2024 10:40 AM TAG AND LABEL CUTTER Office Visit [facility] [address] [place] [phone] Fransisco Medina MD [address] [place] [address] Health Maintenance Due Date Last Done Comments Depression screening for age 12+ 1968 Hepatitis C screening for ag e 18-79 1974 Colonoscopy through age 75 2001 Lipids for age 45-75 2001 Zoster (shingles) series for age 50+ (1 of 2) 2006 Pneumococcal series for age 50+ (2 of 2 - PCV) 08/19/2009 08/19/2008 AAA screening age 65-74 2021 COVID-19 vaccine series ( season) 2024 09/19/2021, 01/31/2021, 01/10/2021 Influenza for age 65+ 05/17/2024 07/17/2020 , 07/12/2020, 07/01/2009, Additional history exists BMI (ht and wt on same day) for age 18+ 09/10/2025 09/10/2024 Tetanus booster 12/03/2028 12/03/2018, 08/19/2008 RSV vaccine for adults or (1 - 1-dose 75+ series) 12/02/2031 Tdap Completed 12/03/2018, 08/19/2008 Medical Devices Implanted Type Area Glue Machine Operator Device Identifier Shelf Expiration Date Model / Serial / Lot Bone Matrix Infuse Bmp - [id number] Implanted:Qty: 1 on 05/29/2021 by Fransisco Medina MD at [facility] N/A: Lumbar Vertebrae Med[employer] 05/17/2023 [id number] / / [id number] Description:Implanted L3-S1 anterior Bone Matrix 10cc [place] [employer] Dbm - [id number] Implanted:Qty: 1 on 05/29/2021 by Fransisco Medina MD at [facility] N/A: Lumbar Vertebrae [employer] Spine/Ortho 04/11/2023 [id number] / [id number] / Description:Implanted L3-S1 anterior Bone Matrix 10cc [place] [employer] Dbm - [id number] Implanted:Qty: 1 on 05/29/2021 by Fransisco Medina MD at [facility] N/A: Lumbar Vertebrae [employer] Spine/Ortho 04/17/2023 [id number] / [id number] / Description:Implanted L3-S1 anterior Bone 1-4mm 30cc Medtronic Chips Canclls Freeze Dried - [id number] Implanted:Qty: 1 on 05/29/2021 by Fransisco Medina MD at [facility] N/A: Lumbar Vertebrae [employer] Spine/Ortho 09/11/2025 [id number] / [id number] / - Description:Implanted L3-S1 anterior M3 Stand-Alone Alif Cage 25mmx 35mm- 8 Degrees, 13mm Implanted:Qty: 1 on 05/29/2021 by Fransisco Medina MD at [facility] N/A: Lumbar Vertebrae Radionomy 09/30/2025 [id number] / / [id number] Description:Anterior L3-L4 S pine M3 Stand-Alone Alif Cage, 25mmx 35mm, 8 Degrees, 14 Mm Implanted:Qty: 1 on 05/29/2021 by Fransisco Medina MD at [facility] N/A: Lumbar [employer]brae Radionomy 04/06/2026 [id number] / / [id number] Description:Anterior L5-S1 M3 Stand-Alone Alif Cage, 25mmx 35mm, 8 Degrees, 15 Mm Implanted:Qty: 1 on 05/29/2021 by Fransisco Medina MD at [facility] N/A: Lumbar Vertebrae 04/18/2025 [id number] / / [id number] Description:Anterior L4-L5 Corelink 5.5mm X 20mm Screw Implanted:Qty: 9 on 05/29/2021 by Fransisco Medina MD at [facility] N/A: Lumbar Vertebrae Radionomy [id number] / / [id number] Description:Anterior L3-S1 Corelink Locking Plate Implanted:Qty: 3 on 05/29/2021 by Fransisco Medina MD at [facility] N/A: Lumbar Vertebrae Radionomy [id number] / / [id number] Description:Anterior L3-S1 Bone Matrix 10cc Stimulan Kitrapid Cure - [id number] Implanted:Qty: 1 on 05/31/2021 by Fransisco Medina MD at [facility] N/A: Thoracic Vertebrae [employer] 11/14/2023 620-010 / / [id number] Bone Matrix Lg Infuse Bmp - [id number] Implanted:Qty: 1 on 05/31/2021 by Fransisco Medina MD at [facility] Lumbar Vertebrae [employer] Spine/Or[facility]o 03/15/2023 [id number] / / [id number] Description:Posterior T10-pe lvis Bone Matrix 17.4p259sr Magnifuse Pc Dbm - [id number] Implanted:Qty: 1 on 05/31/2021 by Fransisco Medina MD at [facility] Lumbar Vertebrae [employer] Spine/[employer] 02/15/2023 [id number] / [id number] / - Description:Posterior T10-pe lvis Bone 1-4mm 90cc Medtronic Chips Canclls Freeze Dried - [id number] Implanted:Qty: 1 on 05/31/2021 by Fransisco Medina MD at [facility] Lumbar Vertebrae Med[employer] Spine/Ortho 10/05/2025 [id number] / [id number] / - Bone 1-4mm 30cc Medtronic Chips Canclls Freeze Dried - [id number] Implanted:Qty: 1 on 05/31/2021 by Fransisco Medina MD at [facility] Lumbar Vertebrae [employer] Spine[employer] 09/11/2025 [id number] / [id number] / Description:Posterior T10-pe lvis Screw Lmbr Post 7.5x45mm Xia3va - [id number] Implanted:Qty: 6 on 05/31/2021 by Fransisco Medina MD at [facility] Lumbar Vertebrae [facility] [id number] / / Description:Posterior T10-pe lvis Screw Lmbr Post 7.5x50mm Loyda 3va - [id number] Implanted:Qty: 2 on 05/31/2021 by Fransisco Medina MD at [facility] Lumbar Vertebrae [place] [facility] [id number] / / Description:Posterior T10-pe lvis Screw Lmbr Post 6.5x50mm Xia3va - [id number] Implanted:Qty: 5 on 05/31/2021 by Fransisco Medina MD at [facility] Lumbar Vertebrae [place] [facility] [id number] / / Description:Posterior T10-pe lvis Screw Lmbr Post 5x45mm Xia3 Va - [id number] Implanted:Qty: 2 on 05/31/2021 by Fransisco Medina MD at [facility] Lumbar Vertebrae [place] [facility] [id number] / / Description:Posterior T10-pe lvis Screw Lmbr Post 6.5x45mm Loyda 3va - [id number] Implanted:Qty: 1 on 05/31/2021 by Fransisco Medina MD at [facility] Lumbar Vertebrae [facility] [id number] / / Description:Posterior T10-pe lvis Screw Lmbr Post 7.5x40mm Loyda 3va - [id number] Implanted:Qty: 2 on 05/31/2021 by Fransisco Medina MD at [facility] Lumbar Vertebrae [facility] [id number] / / Description:Posterior T10-pe lvis Screw Lmbr Post 8.5x70mm Ilios Va - [id number] Implanted:Qty: 1 on 05/31/2021 by Fransisco Medina MD at [facility] Lumbar Vertebrae [facility] [id number] / / Description:Posterior T10-pe lvis Set Screw Lmbr Xia3 - [id number] Implanted:Qty: 19 on 05/31/2021 by Fransisco Medina MD at [facility] Lumbar Vertebrae [facility] [id number] / / Description:Posterior T10-pe lvis Pradip Lmbr [id number] Loyda Iii Hexagonal Co Cr - [id number] Implanted:Qty: 2 on 05/31/2021 by Fransisco Medina MD at [facility] Lumbar Vertebrae [facility] [id number] / / Description:Posterior T10-pe lvis Vitoss Mimodal Implanted:Qty: 1 on 05/31/2021 by Fransisco Medina MD at [facility] Lumbar Vertebrae [facility] 12/11/2021 [id number] / / [id number] Description:Posterior T10-pe lvis Vitoss Bimodal Implanted:Qty: 1 on 05/31/2021 by Fransisco Medina MD at [facility] Lumbar Vertebrae [facility] 01/11/2022 2567-4886 / / [id number] Description:Posterior T10-pe lvis Vitoss Bimodal Implanted:Qty: 1 on 05/31/2021 by Fransisco Medina MD at [facility] Lumbar Vertebrae [place] [facility] 05/13/2022 1107-4132 / / [id number] Description:Posterior T10-pe lvis Cnnctr Lmbr 53-73mm Loyda Iii Va - [id number] Implanted:Qty: 1 on 05/31/2021 by Fransisco Medina MD at [facility] Lumbar Vertebrae [facility] [id number] / / Description:Posterior T10-pe lvis Clusterhole Acetabular Shell Implanted:Qty: 1 on 09/04/2022 by Min Kelley MD at [facility] Right: Hip [facility] 07/17/2027 [id number] / / [id number] 6.5mm Low Profile Hex Screw Implanted:Qty: 1 on 09/04/2022 by Min Kelley MD at [facility] Right: Hip [place] [facility] 08/07/2027 3310-1404 / / [id number] 6.5mm Low Profile Hex Screw Implanted:Qty: 1 on 09/04/2022 by Min Kelley MD at [facility] Right: Hip [facility] 07/26/2027 [id number] / / [id number] Insert For Mdm Implanted:Qty: 1 on 09/04/2022 by Min Kelley MD at [facility] Right: Hip [facility] 11/21/2025 1236-2-852 / / [id number] Mdm Liner Implanted:Qty: 1 on 09/04/2022 by Min Kelley MD at [facility] Right: Hip [facility] 02/23/2026 [id number] / / [id number] 127deg Neck Angle Hip Stem Implanted:Qty: 1 on 09/04/2022 by Min Kelley MD at [facility] Right: Hip [facility] 10/16/2026 [id number] / / [id number] Ceramic V40 Femoral Head Implanted:Qty: 1 on 09/04/2022 by Min Kelley MD at [facility] Right: Hip [facility] 04/29/2026 6570-0-228 / / [id number] Explanted Type Area Glue Machine Operator Device Identifier Shelf Expiration Date Model / Serial / Lot Screw Sm Joint 4.5x20mm Axsos Dale Titnm - [id number] Explanted:Qty : 3 on 05/31/2021 by Fransisco Medina MD at [facility] Lumbar Vertebrae [facility] [id number] / / Pain Pump Explanted:Qty : 1 on 03/06/2023 by Fransisco Medina MD at [facility] Right: Spine [place] Loyda 3 Screws, 3 Caps, 1 Pradip Explanted:Qty : 1 on 03/06/2023 by Fransisco Medina MD at [facility] N/A: Spine Description:L5-Pelvis Procedures Procedure Name Priority Date/Time Associated Diagnosis Comments XR SPINE LUMBAR MINIMUM 4 VIEWS Routine 09/10/2024 11:29 AM TAG AND LABEL CUTTER Lumbar pain from Last 3 Months Results * XR SPINE LUMBAR MINIMUM 4 VIEWS (09/10/2024 11:29 AM TAG AND LABEL CUTTER) Anatomical Region Laterality Modality Spine, LUMBAR SPINE Computed Rad iography 09/10/2024 11:2 9 AM TAG AND LABEL CUTTER Impressions 09/10/2024 3:34 PM TAG AND LABEL CUTTER Thoracolumbar dextrocurvature. Minimal retrolisthesis of L1 on L2 and grade 1 anterolisthesis of L3 on L4. No appreciable dynamic instability between flexion and extension, although evaluation is limited due to overlapping bone and hardware. T9-L5 posterior fusion construct with L2-L3, L3-L4, and L4-L5 anterior interbody fusions. Bone cement in the posterior soft tissues. The left-sided pradip is fractured between the L4 and L5 screws. No other hardware breakage or loosening is appreciated. Vertebral body heights are maintained. Multilevel disc space height loss with associated endplate osteophyte formation and facet arthropathy. Narrative 09/10/2024 3:34 PM TAG AND LABEL CUTTER For Patients: As a result of the Cures Act, medical imaging exams and procedure reports are released immediately into your electronic medical record. You may view this report before your referring provider. If you have questions, please contact your health care provider. EXAM: XR SPINE LUMBAR MINIMUM 4 VIEWS LOCATION: [facility] DATE: 09/10/2024 INDICATION: Lumbar pain. COMPARISON: 10/27/2021, 03/06/2023. Procedure Note Janiya Bennett MD - 09/10/2024 For Patients: As a result of the Cures Act, medical imagingexams and procedure reports are released immediately into your electronicmedical record. You may view this report before your referring provider.If you have questions, please contact your health care provider. EXAM: XR SPINE LUMBAR MINIMUM 4 VIEWS LOCATION: [facility] DATE: 09/10/2024 INDICATION: Lumbar pain. COMPARISON: 10/27/2021, 03/06/2023. IMPRESSION: Thoracolumbar dextrocurvature. Minimal retrolisthesis of L1 on L2 andgrade 1 anterolisthesis of L3 on L4. No appreciable dynamic instabilitybetween flexion and extension, although evaluation is limited due tooverlapping bone and hardware. T9-L5 posterior fusion construct with L2-L3, L3-L4, and L4-L5 anteriorinterbody fusions. Bone cement in the posterior soft tissues. Theleft-sided pradip is fractured between the L4 and L5 screws. No otherhardware breakage or loosening is appreciated. Vertebral body heights aremaintained. Multilevel disc space height loss with associated endplateosteophyte formation and facet arthropathy. [facility] Final Result from Last 3 Months Insurance MEDICARE PART A HB ONLY BLUE CROSS OF NON-MS-ITS MEDICARE PB ONLY HC MEDICARE PPS MEDICARE PROVIDER BASED BLUE CROSS OF NON-MS-[facility] Advance Directives * DNR (Latest Code Status [...] Code Status Discussion: Not Discussed Care Teams Transcripter Relationship Specialty Start Date End Date None . PCP - General 09/03/24
[2024-09-24] MEDS: CEFTAZIDIME IVPB (06:00)
[2024-09-24] MEDS: SODIUM CHLORIDE MINI 0.9% IVPB (06:00)
--- NOTE | 2024-09-24 06:02 | ED.GENADULT ---
HPI - General Adult General Date Seen: 09/24/24 Chief complaint: Back Injury/Pain Stated complaint: fall Time Seen by Provider: 09/24/24 03:33 Source: patient, family and EMS Mode of arrival: EMS Limitations: altered mental status History of Present Illness HPI narrative: Patient is a 68-year-old male with chronic back pain with history of multiple spine surgeries most recently February 2023. His spine surgeon is Dr. Medina. He was seen by his PA on 09/10/2024. X-rays revealed a fractured sabrina in his left lumbar area. A plan was made for him to have an outpatient CT later today at [facility]. Patient is a brought in by ambulance with a history of falls. Initially he told me that he fell once. After speaking with his she tells me that he has fallen at least 3 times in the last two days. Yesterday when he fell he hit his head but supposedly did not lose consciousness. He denies any head injury from today's falls. His back pain has gotten much more severe and his legs are weak. He is chronically on amitriptyline, gabapentin, morphine 15 mg t.i.d.. He denies taking any extra pain medication. He denies fevers or chills. He tells me that he has been eating and drinking normally although he clinically appears dehydrated. His tells me that he has not eaten or drank for the past two days and has only been out of bed on a couple of occasions. He denies fevers or chills. He denies shortness of breath but was hypoxic to 81% on room air upon arrival. He denies coughs. He tells me that he has been taking his medications as prescribed but he has no idea what those medications are. Supposedly at baseline his cognition is normal and so tonight's confusion is new. He does recall that he has an appointment in [place] later today and I assume that is for his CT. Related Data Home Medications ?Medication ?Instructions ?Recorded ?Confirmed multivitamin 1 tab PO QDAY 04/30/22 09/24/24 gabapentin 300 mg capsule 900 mg PO QDAY 08/29/22 09/24/24 acetaminophen 650 mg 500 mg PO Q8H 02/05/24 09/24/24 tablet,extended release aspirin 81 mg tablet,delayed 81 mg PO .every other day 02/05/24 09/24/24 release (Adult Low Dose Aspirin) cyclobenzaprine 10 mg tablet 10 mg PO TID 02/05/24 09/24/24 ferrous sulfate 325 mg (65 mg 325 mg PO .PRN 02/05/24 09/24/24 iron) tablet (FeroSul) morphine 15 mg immediate release 15 mg PO BID-TID PRN severe pain 09/24/24 09/24/24 tablet morphine 15 mg tablet,extended 15 mg PO 3XD chronic pain 09/24/24 09/24/24 release Previous Rx's ?Medication ?Instructions ?Recorded albuterol sulfate 90 mcg/actuation 2 puff inhalation Q6-8H PRN 02/05/24 aerosol inhaler shortness of breath or wheezing #6.7 grams amitriptyline 100 mg tablet See Rx Instructions .Route 02/05/24 .COMPLEX #90 tabs citalopram 20 mg tablet 20 mg PO DAILY #90 tabs 02/05/24 metformin 750 mg tablet,extended 1,500 mg (2 x 750 mg) PO QDAY #180 02/05/24 release 24 hr tabs metoprolol succinate 25 mg 25 mg PO DAILY #90 tabs 02/05/24 tablet,extended release 24 hr pramipexole 1 mg tablet 1 mg PO QPM #90 tabs 02/05/24 rosuvastatin 20 mg tablet 20 mg PO .Bedtime #90 tabs 02/05/24 glimepiride 4 mg tablet 4 mg PO QAM #90 tabs 02/06/24 ascorbic acid (vitamin C) 250 mg See Rx Instructions .Route 02/07/24 tablet .COMPLEX #90 tabs lidocaine 5 % topical patch 1 patch topical Q24H #15 ea 08/03/24 Allergies Allergy/AdvReac Type Severity Reaction Status Date / Time hydromorphone Allergy Unknown Verified 09/24/24 03:29 prednisone Allergy Unknown violent Verified 09/24/24 03:29 tramadol Allergy Unknown Verified 09/24/24 03:29 Review of Systems Narrative: Her review of systems is positive for his chronic low back pain. He does not test his blood sugar regularly and is aware that they have been running high. He denies chest pains or shortness of breath. He denies any prolonged time on the ground after his falls. Review of systems in all other areas is noted to be negative. [facility] Medical History H/O onychomycosis ?Z86.19 - Personal history of other infectious and parasitic diseases (ICD-10) Surgical History History of total right hip arthroplasty ?Z96.641 - Presence of right artificial hip joint (ICD-10) Status post thoracic spinal fusion (~05/2021) ?Z98.1 - Arthrodesis status (ICD-10) Status post laminectomy with spinal fusion (~05/2021) ?Z98.1 - Arthrodesis status (ICD-10) Status post cervical spinal arthrodesis (~2011) ?Z98.1 - Arthrodesis status (ICD-10) Status post bilateral inguinal hernia repair ?Z98.890 - Other specified postprocedural states (ICD-10) ?Z87.19 - Personal history of other diseases of the digestive system (ICD-10) History of umbilical hernia repair ?Z98.890 - Other specified postprocedural states (ICD-10) ?Z87.19 - Personal history of other diseases of the digestive system (ICD-10) History of right knee surgery ?Z98.890 - Other specified postprocedural states (ICD-10) Family History Father Diabetes Mother Alzheimers disease Social History Smoking Status: Current some day smoker Do you use any of these nicotine containing products: None Second hand tobacco smoke exposure: No How often do you have a drink containing alcohol: never AUDIT-C Alcohol total score: 0 Non-prescribed substance use: denies use Exam Narrative: Exam Narrative: Vitals noted. His speech is difficult to understand because of extreme dryness in his mouth. HEENT: Conjunctiva clear. Tympanic membranes are pearly white bilaterally. Mouth is dry, tongue is fissured. Teeth are decayed or missing. Neck is supple without adenopathy. Decreased range of motion of the cervical spine. Lungs: Diminished but clear to auscultation in all ramos. No wheezes, rales, rhonchi. Heart: Regular rate and rhythm without murmur. Abdomen: Soft and nontender. No guarding, rigidity, rebound. Bowel sounds are normal. No palpable masses. Extremities: No cyanosis or edema. Good distal pulses. Low back exam: Tenderness to palpation throughout the lower back. No palpable spasms. He has pain in the low back with any movement or repositioning. No rash. Neurologic: He is not oriented to time. He is aware that he is in the hospital. He is unclear on the details of his falls and his information does not correlate well with his 's history. He moves all extremities. He is not able to reposition himself in bed without assistance. Const: Vital Signs, click to edit/add: Vital Signs - 24 hr 09/24/24 03:17 09/24/24 03:23 09/24/24 03:31 Temperature 98.0 F Pulse Rate 100 Pulse Rate [Right Pulse Oximeter] 93 Respiratory Rate 20 22 Blood Pressure 108/81 Blood Pressure [Ri ght Upper Arm] 108/61 Pulse Oximetry 91 81 L 90 Oxygen Delivery Me thod Room Air Oxygen Flow Rate 09/24/24 03:31 09/24/24 03:33 09/24/24 04:02 Temperature Pulse Rate 107 H Pulse Rate [Right Pulse Oximeter] Respiratory Rate 20 Blood Pressure 137/70 Blood Pressure [Ri ght Upper Arm] Pulse Oximetry 90 90 92 Oxygen Delivery Me thod Nasal Cannula Nasal Cannula OxyMask Oxygen Flow Rate 3 3 3 09/24/24 04:17 09/24/24 04:32 09/24/24 04:45 Temperature Pulse Rate 112 H 105 H 105 H Pulse Rate [Right Pulse Oximeter] Respiratory Rate Blood Pressure 120/98 H 109/72 Blood Pressure [Ri ght Upper Arm] Pulse Oximetry 88 88 83 L Oxygen Delivery Me thod OxyMask OxyMask Room Air Oxygen Flow Rate 3 3 09/24/24 04:49 09/24/24 05:02 Temperature Pulse Rate 92 95 Pulse Rate [Right Pulse Oximeter] Respiratory Rate Blood Pressure 130/100 H 100/67 Blood Pressure [Ri ght Upper Arm] Pulse Oximetry 81 L 92 Oxygen Delivery Me thod Room Air OxyMask Oxygen Flow Rate 3 Course Course ED Course: Patient seen and examined. He is clearly dehydrated. A Liter of normal saline is given. EKG shows sinus tachycardia with a rate of 117. Every 4th beat is a PVC. CBC shows white blood count 72668. Hemoglobin is 9.5 which is a significant change from previous. Platelet count is normal. Basic metabolic panel shows a sodium of 131, potassium 3.3, BUN 28, creatinine 1.3. Glucose is 260. CRP is pending. Triple swab is negative. Chest x-ray is unremarkable. CT of his head is unremarkable. 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 In the lumbar spine there is gas and fluid present in the L3-L5 laminectomy bed extending along the psoas muscle and fractured the left lumbar sabrina consistent with infection. Reevaluation(s) Reevaluation #1: I spoke with Huang Allison PA was on-call for Dr. Medina. He has requested that we transfer the patient to [facility] ED as he will required surgical treatment of this infection and that is their preferred hospital. I spoke with Dr. Nunez in the ED who kindly agrees to accept him in transfer. Patient has been given 1 g of vancomycin IV and 2 g of ceftazidime. He is transferred by ground ambulance in stable condition. Vital Signs Vital signs: Initial Vital Signs Pulse Rate 100 09/24/24 03:17 Respiratory Rate 20 09/24/24 03:17 Blood Pressure 108/81 09/24/24 03:17 Blood Pressure Mean 90 09/24/24 03:17 Pulse Oximetry 91 09/24/24 03:17 Vital Signs Pulse Rate 100 09/24/24 03:17 Respiratory Rate 20 09/24/24 03:17 Blood Pressure 108/81 09/24/24 03:17 Pulse Oximetry 91 09/24/24 03:17 Temperature 98.0 F 09/24/24 03:23 Pulse Rate 95 09/24/24 05:02 Respiratory Rate 20 09/24/24 04:02 Blood Pressure 100/67 09/24/24 05:02 Pulse Oximetry 92 09/24/24 05:02 Oxygen Delivery Method OxyMask 09/24/24 05:02 Oxygen Flow Rate 3 09/24/24 05:02 Medications Administered Medications: Generic Name Dose Route Start Last Admin Trade Name Freq PRN Reason Stop Dose Admin Ceftazidime 2 gm/ Sodium 100 mls @ 200 mls/hr 09/24/24 05:37 09/24/24 06:00 Chloride IVPB 09/24/24 05:38 200 mls/hr ONCE ONE Administration Discontinued Medications Generic Name Dose Route Start Last Admin Trade Name Loganq PRN Reason Stop Dose Admin Sodium Chloride 1,000 mls @ 500 mls/hr 09/24/24 03:45 09/24/24 04:50 0.9 % Sodium Chloride 1000 Ml IV 09/24/24 05:44 Infused .Q2H AALIYAH Infusion Medical Decision Making Lab Data Labs: Lab Results 09/24/24 09/24/24 Range/Units 03:15 03:33 WBC 12.80 H (4.50-11.00) K/uL RBC 3.41 L (4.30-5.90) m/uL Hgb 9.5 L (13.5-17.5) gm/dL Hct 30.1 L (37.0-53.0) % MCV 88 (80-100) fL MCH 28 (26-34) pg MCHC 32 (32-36) gm/dL RDW Coeff of Melissa 14.9 (11.5-15.5) % Plt Count 421 (140-440) K/uL Neut % (Auto) 85.4 H (42.0-72.0) % Lymph % (Auto) 6.7 L (20-44) % [place] % (Auto) 5.9 (0.0-11.0) % Eos % (Auto) 0.4 (0.0-7.0) % Baso % (Auto) 0.1 (0.0-3.0) % Neut # (Auto) 10.90 H (1.7-7.0) K/uL Lymph # (Auto) 0.90 (0.90-2.90) K/uL [place] # (Auto) 0.80 (0.00-0.90) K/UL Eos # (Auto) 0.10 (0.00-0.50) K/uL Baso # (Auto) 0.00 (0.00-0.30) K/uL Abs Immat Gran (auto) 0.20 (0.00-0.30) K/uL Imm/Tot Granulo (auto) 1.5 % Sodium 131 L (135-149) mmol/L Potassium 3.3 L (3.6-5.1) mmol/L Chloride 89 L (96-114) mmol/L Carbon Dioxide 37 H (20-32) mmol/L Anion Gap 5 L (7-15) mEq/L BUN 28 (7-30) mg/dL Creatinine 1.3 (0.5-1.5) mg/dL Estimated Creat Clear 60.52 Estimated GFR 60 ml/min Glucose 260 H (60-115) mg/dL Calcium 9.3 (8.4-10.6) mg/dL C-Reactive Protein Cancelled SARS-CoV-2 (PCR) Negative SARS-CoV-2 (Negative) Influenza Type A (PCR) Negative PCR FLU A (Negative) Influenza Type B (PCR) Negative PCR FLU B (Negative) RSV (PCR) Negative PCR RSV (Negative) Discharge Plan Discharge Clinical Impression: Infection of lumbar spine, Hypoxia Patient Disposition: [facility] Condition: Guarded
[2024-09-24] MEDS: VANCOMYCIN 1 GM/200 ML 1 GM/200 ML PIGGYBACK IVPB (06:24)
[2024-09-24 06:34] LABS: C Reactive Protein* 47.8 mg/dL (0.5-1.0)
[2024-09-24] MEDS: MORPHINE 4 MG/ML INJ IVP (07:45)
== END 2024-09-24 07:45 | disposition short-term general hospital (02) ==
PROVIDERS: Emergency Provider Family Medicine; PCP Family Medicine
DX: M46.36 Infection of intervertebral disc (pyogenic), lumbar region (principal); R09.02 Hypoxemia
CPT/HCPCS: 36415; 70450; 71045; 72125; 72128; 72131; 80048; 85025; 86140; 87631; 93005; 94761; 96365; 96366; 96375; 99284; 99285; J0713; J2270; J3372; J7030

== ENCOUNTER 2024-09-24 07:37 | Outpatient (CLI) | payer MEDICARE, BC, SELFPAY | END 2024-09-24 07:38 | disposition home or self-care (01) | LOC: AMB 10-08 06:26 | PROVIDERS: PCP Family Medicine; Visit Provider Family Medicine | DX: M54.9 Dorsalgia, unspecified (principal); R41.82 Altered mental status, unspecified | CPT/HCPCS: A0425; A0434 ==

== ENCOUNTER 2025-01-13 11:32 | Outpatient (CLI) | payer MEDICARE, BC, SELFPAY ==
[2025-01-13 12:21] LABS: Hemoglobin A1C* 6.5 % (0-5.6)
[2025-01-13 21:49] LABS: Chloride* 101 mmol/L (96-114); Sodium* 137 mmol/L (135-149)
[2025-01-13 21:50] LABS: Potassium* 4.7 mmol/L (3.6-5.1)
[2025-01-13 21:52] LABS: Blood Urea Nitrogen* 26 mg/dL (7-30); Creatinine* 0.8 mg/dL (0.5-1.5); Estimated Glomerular Filt Rate 96 ml/min
[2025-01-13 21:53] LABS: Anion Gap 8 mEq/L (7-15); Calcium* 9.3 mg/dL (8.4-10.6); Carbon Dioxide* 28 mmol/L (20-32); Cholesterol* 162 mg/dL (90-199); Glucose* 117 mg/dL (60-115); HDL Cholesterol* 67 mg/dL (>=40); LDL Cholesterol Calculated 79 mg/dL (<100); Triglycerides* 81 mg/dL (40-149)
[2025-01-13 21:56] LABS: C Reactive Protein* 4.9 mg/dL (0.5-1.0)
[2025-01-13 22:25] LABS: PSA Screen* 0.07 ng/mL (0.10-4.00)
== END 2025-01-13 11:33 | disposition home or self-care (01) ==
PROVIDERS: PCP Family Medicine; Visit Provider Family Medicine
DX: E78.2 Mixed hyperlipidemia (principal); E13.9 Other specified diabetes mellitus without complications; I10 Essential (primary) hypertension; R35.1 Nocturia; T84.63XA Infection and inflammatory reaction due to internal fixation device of spine, initial encounter; Z79.2 Long term (current) use of antibiotics; Z79.84 Long term (current) use of oral hypoglycemic drugs; Z12.5 Encounter for screening for malignant neoplasm of prostate
CPT/HCPCS: 80048; 80061; 83036; 86140; G0103

== ENCOUNTER 2025-06-21 13:29 | Outpatient (CLI) | payer BC, MEDICARE, SELFPAY | END 2025-06-21 13:30 | disposition home or self-care (01) | LOC: US 13:30 | PROVIDERS: PCP Family Medicine; Visit Provider Podiatrist | DX: I73.9 Peripheral vascular disease, unspecified (principal); M79.675 Pain in left toe(s); B35.1 Tinea unguium | CPT/HCPCS: 93922 ==